=== PATIENT | female | born 1970 | race Caucasian/White ===

== ENCOUNTER 2024-04-23 10:55 | Outpatient (CLI) | payer BC | END 2024-04-23 23:59 | disposition home or self-care (01) | LOC: RAD 10:55 | PROVIDERS: ATTEND Registered Nurse | DX: M79.661 Pain in right lower leg (principal); M79.601 Pain in right arm | CPT/HCPCS: 93971 ==

== ENCOUNTER 2024-08-09 16:02 | Outpatient (CLI) | payer BC ==
[2024-08-09 16:34] LABS: ABSOLUTE RETICS # 53800 /CUMM (23000-93000); BASOPHILS # (AUTO) 0.1 X10'3 (0-0.2); BASOPHILS % (AUTO) 0.9 % (0-1); EOSINOPHILS # (AUTO) 0.2 X10'3 (0-0.9); EOSINOPHILS % (AUTO) 3.5 % (0-6); HEMATOCRIT 44.3 % (35.0-45.0); HEMOGLOBIN 14.7 g/dl (12.0-16.0); MEAN CORPUSCULAR HEMOGLOBIN 29.5 PG (27.0-31.0); MEAN CORPUSCULAR HGB CONC 33.2 g/dL (33.0-36.5); MEAN CORPUSCULAR VOLUME 88.8 FL (78-98); MEAN PLATELET VOLUME 7.7 FL (7.4-10.4); MONOCYTES # (AUTO) 0.5 X10'3 (0-0.9); MONOCYTES % (AUTO) 7.1 % (2-12); NEUTROPHILS # (AUTO) 4.1 X10'3 (1.8-7.7); NEUTROPHILS % (AUTO) 59.5 % (42-75); PLATELET COUNT 223 X10'3 (140-440); RED BLOOD COUNT 4.99 X10'6 (4.20-5.60); RED CELL DISTRIBUTION WIDTH 13.9 % (11.5-14.5); RETICULOCYTE % (AUTO) 1.1 % (0.5-1.5); WHITE BLOOD COUNT 6.9 X10'3 (4.5-11.0)
[2024-08-09 16:36] LABS: BILIRUBIN,URINE NEGATIVE (Neg); CLARITY,URINE CLEAR (Clear); COLOR,URINE YELLOW (Yellow); GLUCOSE, URINE NEGATIVE (Neg); KETONES,URINE NEGATIVE (Neg); LEUKOCYTE ESTERASE ,URINE NEGATIVE (Neg); NITRITES, URINE NEGATIVE (Neg); OCCULT BLOOD,URINE LARGE (Neg); PROTEIN,URINE NEGATIVE (Neg); UROBILINOGEN,URINE 0.2 E.U/dL (0.2-1.0)
[2024-08-09 16:43] LABS: UA COLLECTION TYPE CLN CATCH MIDSTREAM
[2024-08-09 16:44] LABS: MUCUS STRANDS FEW /LPF (Neg); SQUAMOUS EPITHELIAL CELL,UR MANY /LPF (FEW)
[2024-08-09 16:45] LABS: BACTERIA,URINE FEW /HPF (Neg); WBC,URINE 0-4 /HPF (0-4)
[2024-08-09 16:49] LABS: ANION GAP 6 (8-16); CHLORIDE 104 MMOL/L (99-107); POTASSIUM 3.7 MMOL/L (3.5-5.1); SODIUM 138 MMOL/L (135-145); TOTAL CARBON DIOXIDE 28.3 MMOL/L (24-32)
[2024-08-09 17:01] LABS: % IRON SATURATION 15 % (11-46); IRON 44 UG/DL (49-151); TOTAL IRON BINDING CAPACITY 303 UG/DL (259-388)
[2024-08-09 17:17] LABS: ALANINE AMINOTRANSFERASE 50 U/L (12-78); ALBUMIN 3.8 G/DL (3.4-5.0); ALBUMIN/GLOBULIN RATIO 0.9 (1.1-1.5); ALKALINE PHOSPHATASE 69 IU/L (46-116); ASPARTATE AMINO TRANSFERASE 27 U/L (10-37); BILIRUBIN,TOTAL 0.3 MG/DL (0.1-1.0); BLOOD UREA NITROGEN 14 MG/DL (7-18); BUN/CREATININE RATIO 18.2 (10.0-20.0); C-REACTIVE PROTEIN 1.57 MG/DL (0.0-0.5); CALCIUM 9.1 MG/DL (8.5-10.1); CREATININE 0.77 MG/DL (0.40-0.90); FERRITIN 101 NG/ML (8-252); FREE T4 (FREE THYROXINE) 0.92 NG/DL (0.73-1.40); GLUCOSE 92 MG/DL (70-104); LACTATE DEHYDROGENASE 166 U/L (81-234); PRO BRAIN NATRIURETIC PEPTIDE < 30 PG/ML (0-125); THYROID STIMULATING HORMONE 2.36 ulU/ml (0.34-4.50); TOTAL PROTEIN 7.9 G/DL (6.4-8.2); eGFR 78 ML/MIN
[2024-08-11 09:14] LABS: HAPTOGLOBIN 163 mg/dL (33-346); TRANSFERRIN 248 mg/dL (192-364)
[2024-08-11 11:16] LABS: ANTINUCLEAR ANTIBODIES Positive (Negative)
[2024-08-12 07:18] LABS: A/G RATIO 1.1 (0.7-1.7); ALBUMIN 3.8 g/dL (2.9-4.4); ALPHA-1-GLOBULIN 0.2 g/dL (0.0-0.4); ALPHA-2-GLOBULIN 0.8 g/dL (0.4-1.0); BETA GLOBULIN 1.2 g/dL (0.7-1.3); GAMMA GLOBULIN 1.3 g/dL (0.4-1.8); GLOBULIN, TOTAL 3.5 g/dL (2.2-3.9); M-SPIKE Not Observed g/dL (Not Observed); PROTEIN, TOTAL, SERUM 7.3 g/dL (6.0-8.5)
[2024-08-13 09:14] LABS: ALBUMIN, UR 23.1 % (.); ALPHA-1-GLOBULIN,UR 4.3 % (.); ALPHA-2-GLOBULIN,UR 8.5 % (.); BETA GLOBULIN, UR 41.1 % (.)
== END 2024-08-09 23:59 | disposition home or self-care (01) ==
LOC: RAD 16:02
PROVIDERS: ATTEND Internal Medicine Hematology & Oncology
DX: C50.919 Malignant neoplasm of unspecified site of unspecified female breast (principal)
CPT/HCPCS: 36415; 80053; 81001; 82607; 82728; 83010; 83540; 83550; 83615; 83880; 84155; 84156; 84165; 84166; 84439; 84443; 84466; 84550; 85025; 85045; 85651; 86038; 86140

== ENCOUNTER 2024-08-13 15:59 | Outpatient (CLI) | payer BC | END 2024-08-13 23:59 | disposition home or self-care (01) | LOC: RAD 15:59 | PROVIDERS: ATTEND Internal Medicine Hematology & Oncology | DX: Z01.818 Encounter for other preprocedural examination (principal); R59.0 Localized enlarged lymph nodes; K76.0 Fatty (change of) liver, not elsewhere classified; N63.20 Unspecified lump in the left breast, unspecified quadrant | CPT/HCPCS: 71250 ==

== ENCOUNTER 2024-08-24 08:25 | Outpatient (CLI) | payer BC | END 2024-08-24 23:59 | disposition home or self-care (01) | LOC: CARD DIAG 08:25 | PROVIDERS: ATTEND Nurse Practitioner Family | DX: Z01.810 Encounter for preprocedural cardiovascular examination (principal); I08.8 Other rheumatic multiple valve diseases | CPT/HCPCS: 93306 ==

== ENCOUNTER 2024-09-27 07:40 | Outpatient (CLI) | payer BC ==
[2024-09-27 08:11] LABS: BASOPHILS # (AUTO) 0.1 X10'3 (0-0.2); BASOPHILS % (AUTO) 1.1 % (0-1); EOSINOPHILS # (AUTO) 0.1 X10'3 (0-0.9); EOSINOPHILS % (AUTO) 1.4 % (0-6); HEMATOCRIT 42.1 % (35.0-45.0); HEMOGLOBIN 14.2 g/dl (12.0-16.0); LYMPHOCYTES # (AUTO) 1.4 X10'3 (1.1-4.8); LYMPHOCYTES % (AUTO) 21.3 % (21-51); MEAN CORPUSCULAR HEMOGLOBIN 29.8 PG (27.0-31.0); MEAN CORPUSCULAR HGB CONC 33.7 g/dL (33.0-36.5); MEAN CORPUSCULAR VOLUME 88.5 FL (78-98); MEAN PLATELET VOLUME 7.5 FL (7.4-10.4); MONOCYTES # (AUTO) 0.5 X10'3 (0-0.9); NEUTROPHILS # (AUTO) 4.3 X10'3 (1.8-7.7); NEUTROPHILS % (AUTO) 68.2 % (42-75); PLATELET COUNT 177 X10'3 (140-440); RED BLOOD COUNT 4.76 X10'6 (4.20-5.60); RED CELL DISTRIBUTION WIDTH 13.9 % (11.5-14.5); WHITE BLOOD COUNT 6.3 X10'3 (4.5-11.0)
[2024-09-27 08:29] LABS: BLOOD UREA NITROGEN 12 MG/DL (7-18); BUN/CREATININE RATIO 13.3 (10.0-20.0); CHLORIDE 108 MMOL/L (99-107); GLUCOSE 114 MG/DL (70-104); POTASSIUM 3.8 MMOL/L (3.5-5.1); SODIUM 142 MMOL/L (135-145); eGFR 65 ML/MIN
[2024-09-27 08:41] LABS: THYROID STIMULATING HORMONE 1.66 ulU/ml (0.34-4.50)
[2024-09-27 08:50] LABS: ALANINE AMINOTRANSFERASE 52 U/L (12-78); ALBUMIN 3.4 G/DL (3.4-5.0); ALBUMIN/GLOBULIN RATIO 0.9 (1.1-1.5); ALKALINE PHOSPHATASE 74 IU/L (46-116); ANION GAP 7 (8-16); ASPARTATE AMINO TRANSFERASE 32 U/L (10-37); BILIRUBIN,TOTAL 0.5 MG/DL (0.1-1.0); CALCIUM 8.8 MG/DL (8.5-10.1); TOTAL CARBON DIOXIDE 27.3 MMOL/L (24-32); TOTAL PROTEIN 7.2 G/DL (6.4-8.2)
== END 2024-09-27 23:56 | disposition home or self-care (01) ==
LOC: LAB 07:40
PROVIDERS: ATTEND Internal Medicine Hematology & Oncology
DX: C50.912 Malignant neoplasm of unspecified site of left female breast (principal); R79.89 Other specified abnormal findings of blood chemistry; E61.1 Iron deficiency; Z79.899 Other long term (current) drug therapy; Z17.0 Estrogen receptor positive status [ER+]
CPT/HCPCS: 36415; 80053; 83735; 84443; 85025

== ENCOUNTER 2024-10-20 08:09 | Outpatient (CLI) | payer BC ==
[2024-10-20 08:33] LABS: BASOPHILS # (AUTO) 0.1 X10'3 (0-0.2); EOSINOPHILS # (AUTO) 0.1 X10'3 (0-0.9); EOSINOPHILS % (AUTO) 1.3 % (0-6); HEMATOCRIT 42.2 % (35.0-45.0); HEMOGLOBIN 14.1 g/dl (12.0-16.0); LYMPHOCYTES # (AUTO) 1.8 X10'3 (1.1-4.8); MEAN CORPUSCULAR HEMOGLOBIN 29.6 PG (27.0-31.0); MEAN CORPUSCULAR HGB CONC 33.4 g/dL (33.0-36.5); MEAN CORPUSCULAR VOLUME 88.7 FL (78-98); MEAN PLATELET VOLUME 7.2 FL (7.4-10.4); MONOCYTES # (AUTO) 0.6 X10'3 (0-0.9); MONOCYTES % (AUTO) 11.5 % (2-12); NEUTROPHILS # (AUTO) 3.1 X10'3 (1.8-7.7); NEUTROPHILS % (AUTO) 54.2 % (42-75); PLATELET COUNT 241 X10'3 (140-440); RED BLOOD COUNT 4.76 X10'6 (4.20-5.60); RED CELL DISTRIBUTION WIDTH 15.4 % (11.5-14.5); WHITE BLOOD COUNT 5.6 X10'3 (4.5-11.0)
[2024-10-20 08:53] LABS: ALANINE AMINOTRANSFERASE 42 U/L (12-78); ALBUMIN 3.5 G/DL (3.4-5.0); ALBUMIN/GLOBULIN RATIO 0.9 (1.1-1.5); ALKALINE PHOSPHATASE 79 IU/L (46-116); ANION GAP 8 (8-16); ASPARTATE AMINO TRANSFERASE 32 U/L (10-37); BILIRUBIN,TOTAL 0.6 MG/DL (0.1-1.0); BLOOD UREA NITROGEN 12 MG/DL (7-18); BUN/CREATININE RATIO 13.5 (10.0-20.0); CALCIUM 8.7 MG/DL (8.5-10.1); CHLORIDE 106 MMOL/L (99-107); CREATININE 0.89 MG/DL (0.40-0.90); GLUCOSE 125 MG/DL (70-104); POTASSIUM 4.1 MMOL/L (3.5-5.1); SODIUM 141 MMOL/L (135-145); THYROID STIMULATING HORMONE 2.15 ulU/ml (0.34-4.50); TOTAL CARBON DIOXIDE 26.9 MMOL/L (24-32); TOTAL PROTEIN 7.3 G/DL (6.4-8.2); eGFR 66 ML/MIN
== END 2024-10-20 23:59 | disposition home or self-care (01) ==
LOC: RAD 08:09
PROVIDERS: ATTEND Internal Medicine Hematology & Oncology
DX: C50.912 Malignant neoplasm of unspecified site of left female breast (principal); E61.1 Iron deficiency; R79.89 Other specified abnormal findings of blood chemistry; Z79.899 Other long term (current) drug therapy; Z17.0 Estrogen receptor positive status [ER+]
CPT/HCPCS: 36415; 80053; 83735; 84443; 85025

== ENCOUNTER 2024-11-17 15:45 | Outpatient (CLI) | payer BC ==
[2024-11-10 08:14] LABS: BASOPHILS % (AUTO) 0.7 % (0-1); EOSINOPHILS % (AUTO) 0.5 % (0-6); HEMATOCRIT 41.4 % (35.0-45.0); LYMPHOCYTES # (AUTO) 1.7 X10'3 (1.1-4.8); LYMPHOCYTES % (AUTO) 33.1 % (21-51); MEAN CORPUSCULAR HEMOGLOBIN 30.5 PG (27.0-31.0); MEAN CORPUSCULAR HGB CONC 33.7 g/dL (33.0-36.5); MEAN CORPUSCULAR VOLUME 90.3 FL (78-98); MEAN PLATELET VOLUME 7.1 FL (7.4-10.4); MONOCYTES # (AUTO) 0.5 X10'3 (0-0.9); MONOCYTES % (AUTO) 10.4 % (2-12); NEUTROPHILS # (AUTO) 2.9 X10'3 (1.8-7.7); NEUTROPHILS % (AUTO) 55.3 % (42-75); PLATELET COUNT 248 X10'3 (140-440); RED BLOOD COUNT 4.59 X10'6 (4.20-5.60); RED CELL DISTRIBUTION WIDTH 16.4 % (11.5-14.5); WHITE BLOOD COUNT 5.2 X10'3 (4.5-11.0)
[2024-11-10 09:28] LABS: ALANINE AMINOTRANSFERASE 43 U/L (12-78); ALBUMIN 3.5 G/DL (3.4-5.0); ALBUMIN/GLOBULIN RATIO 0.9 (1.1-1.5); ALKALINE PHOSPHATASE 69 IU/L (46-116); ANION GAP 10 (8-16); ASPARTATE AMINO TRANSFERASE 31 U/L (10-37); BILIRUBIN,TOTAL 0.5 MG/DL (0.1-1.0); BLOOD UREA NITROGEN 14 MG/DL (7-18); BUN/CREATININE RATIO 16.9 (10.0-20.0); CALCIUM 9.4 MG/DL (8.5-10.1); CHLORIDE 104 MMOL/L (99-107); CREATININE 0.83 MG/DL (0.40-0.90); FREE T4 (FREE THYROXINE) 0.84 NG/DL (0.73-1.40); GLUCOSE 106 MG/DL (70-104); MAGNESIUM 2.1 MG/DL (1.5-2.4); POTASSIUM 3.7 MMOL/L (3.5-5.1); SODIUM 140 MMOL/L (135-145); THYROID STIMULATING HORMONE 2.01 ulU/ml (0.34-4.50); TOTAL CARBON DIOXIDE 26.1 MMOL/L (24-32); TOTAL PROTEIN 7.5 G/DL (6.4-8.2); eGFR 71 ML/MIN
[2024-11-11 13:15] LABS: VITAMIN D, 25-HYDROXY 28.5 ng/mL (30.0-100.0)
== END 2024-11-17 23:59 | disposition home or self-care (01) ==
LOC: CARD DIAG 15:45
PROVIDERS: ATTEND Internal Medicine Interventional Cardiology
DX: Z01.810 Encounter for preprocedural cardiovascular examination (principal); C50.112 Malignant neoplasm of central portion of left female breast; E55.9 Vitamin D deficiency, unspecified; I34.9 Nonrheumatic mitral valve disorder, unspecified
CPT/HCPCS: 36415; 80053; 82306; 83735; 84439; 84443; 85025; 93306; 93356

== ENCOUNTER 2024-12-01 08:10 | Outpatient (CLI) | payer BC ==
[2024-12-01 08:39] LABS: BASOPHILS # (AUTO) 0.1 X10'3 (0-0.2); BASOPHILS % (AUTO) 0.9 % (0-1); EOSINOPHILS % (AUTO) 0.3 % (0-6); HEMATOCRIT 41.8 % (35.0-45.0); HEMOGLOBIN 13.7 g/dl (12.0-16.0); LYMPHOCYTES # (AUTO) 1.7 X10'3 (1.1-4.8); LYMPHOCYTES % (AUTO) 30.2 % (21-51); MEAN CORPUSCULAR HEMOGLOBIN 29.8 PG (27.0-31.0); MEAN CORPUSCULAR HGB CONC 32.8 g/dL (33.0-36.5); MEAN CORPUSCULAR VOLUME 90.7 FL (78-98); MEAN PLATELET VOLUME 7.1 FL (7.4-10.4); MONOCYTES # (AUTO) 0.5 X10'3 (0-0.9); MONOCYTES % (AUTO) 8.6 % (2-12); NEUTROPHILS # (AUTO) 3.3 X10'3 (1.8-7.7); PLATELET COUNT 244 X10'3 (140-440); RED CELL DISTRIBUTION WIDTH 17.2 % (11.5-14.5); WHITE BLOOD COUNT 5.6 X10'3 (4.5-11.0)
[2024-12-01 09:11] LABS: ALANINE AMINOTRANSFERASE 37 U/L (12-78); ALBUMIN 3.4 G/DL (3.4-5.0); ALBUMIN/GLOBULIN RATIO 0.9 (1.1-1.5); ALKALINE PHOSPHATASE 73 IU/L (46-116); ANION GAP 9 (8-16); ASPARTATE AMINO TRANSFERASE 28 U/L (10-37); BILIRUBIN,TOTAL 0.6 MG/DL (0.1-1.0); BLOOD UREA NITROGEN 18 MG/DL (7-18); BUN/CREATININE RATIO 24.7 (10.0-20.0); CALCIUM 8.7 MG/DL (8.5-10.1); CHLORIDE 105 MMOL/L (99-107); CREATININE 0.73 MG/DL (0.40-0.90); GLUCOSE 119 MG/DL (70-104); MAGNESIUM 1.9 MG/DL (1.5-2.4); POTASSIUM 3.9 MMOL/L (3.5-5.1); SODIUM 141 MMOL/L (135-145); THYROID STIMULATING HORMONE 1.69 ulU/ml (0.34-4.50); TOTAL CARBON DIOXIDE 26.9 MMOL/L (24-32); eGFR 83 ML/MIN
== END 2024-12-01 23:59 | disposition home or self-care (01) ==
LOC: RAD 08:10
PROVIDERS: ATTEND Internal Medicine Hematology & Oncology
DX: C50.912 Malignant neoplasm of unspecified site of left female breast (principal); E61.1 Iron deficiency; R79.89 Other specified abnormal findings of blood chemistry; Z17.0 Estrogen receptor positive status [ER+]; Z79.899 Other long term (current) drug therapy
CPT/HCPCS: 36415; 80053; 83735; 84443; 85025

== ENCOUNTER 2024-12-07 22:28 | Emergency (ER) | payer BC ==
[~2024-12-07] VITALS: Ht 162.6 cm; Wt 110.0 kg
[2024-12-07 22:38] VITALS: TEMP 99.2
[2024-12-07 22:54] VITALS: PULSE 97; RESP 16; O2SAT 96
[2024-12-07] MEDS: ipratropium/albuterol 3ml nebule NEB STA (22:54)
[2024-12-07 23:02] VITALS: PULSE 105; RESP 24; O2SAT 97
[2024-12-08] MEDS: predniSONE 20 mg tablet PO ONE (00:02)
[2024-12-08] MEDS: triamcinolone acetonide 40mg/ml inj IM ONE (00:03)
[2024-12-08 01:16] VITALS: BP 108/55; PULSE 97; RESP 20; O2SAT 94
[2024-12-09] MEDS ORDERED: PROM118S5 PO (17:27)
[2024-12-09] MEDS ORDERED: GABA-530 PO (17:27)
[2024-12-09] MEDS ORDERED: LIDO30CR TOP (17:27)
[2024-12-09] MEDS ORDERED: ONDA-104 PO (17:27)
[2024-12-09] MEDS ORDERED: DICY20TA17 PO (17:27)
[2024-12-09] MEDS ORDERED: ALBU18HF2 INH (17:27)
[2024-12-09] MEDS ORDERED: IPRA3AMP31 NEB (17:27)
[2024-12-09] MEDS ORDERED: PROC10TA97 PO (17:27)
== END 2024-12-08 01:18 | disposition home or self-care (01) ==
LOC: ER 22:28
DX: J45.909 Unspecified asthma, uncomplicated (principal); Z91.013 Allergy to seafood
CPT/HCPCS: 93005; 94640; 96372; 99284; J3301; J7512; 94760

== ENCOUNTER 2024-12-09 13:27 | Inpatient (IN) | payer BC ==
[~2024-12-09] VITALS: Ht 162.6 cm; Wt 108.9 kg
[2024-12-09 14:23] LABS: LYMPHOCYTES # (AUTO) 0.6 X10'3 (1.1-4.8); RED BLOOD COUNT 4.35 X10'6 (4.20-5.60)
[2024-12-09 14:25] LABS: BASOPHILS % (AUTO) 1.2 % (0-1); EOSINOPHILS % (AUTO) 0.4 % (0-6); HEMOGLOBIN 13.3 g/dl (12.0-16.0); LYMPHOCYTES % (AUTO) 63.1 % (21-51); MEAN CORPUSCULAR HEMOGLOBIN 30.7 PG (27.0-31.0); MEAN CORPUSCULAR HGB CONC 34.2 g/dL (33.0-36.5); MEAN CORPUSCULAR VOLUME 89.7 FL (78-98); MEAN PLATELET VOLUME 7.6 FL (7.4-10.4); MONOCYTES # (AUTO) 0.2 X10'3 (0-0.9); MONOCYTES % (AUTO) 20.4 % (2-12); NEUTROPHILS # (AUTO) 0.1 X10'3 (1.8-7.7); NEUTROPHILS % (AUTO) 14.9 % (42-75); PLATELET COUNT 141 X10'3 (140-440); RED CELL DISTRIBUTION WIDTH 17.2 % (11.5-14.5)
[2024-12-09 14:28] LABS: ALBUMIN 3.6 G/DL (3.4-5.0); ANION GAP 7 (8-16); BLOOD UREA NITROGEN 14 MG/DL (7-18); BUN/CREATININE RATIO 14.7 (10.0-20.0); CALCIUM 8.7 MG/DL (8.5-10.1); CHLORIDE 98 MMOL/L (99-107); CREATININE 0.95 MG/DL (0.40-0.90); GLUCOSE 108 MG/DL (70-104); POTASSIUM 3.6 MMOL/L (3.5-5.1); PRO BRAIN NATRIURETIC PEPTIDE < 30 PG/ML (0-125); SODIUM 134 MMOL/L (135-145); eCRCL 58 ML/MIN; eGFR 61 ML/MIN
[2024-12-09] MEDS: normal saline 1000ml 1,000 ML IV ONE (14:40)
[2024-12-09 14:49] VITALS: PULSE 94; RESP 20; O2SAT 93; O2SAT 94
[2024-12-09] MEDS: ipratropium/albuterol 3ml nebule NEB ONE (14:49)
[2024-12-09 15:11] LABS: ANISOCYTOSIS 1+; LARGE PLATELETS FEW; NUCLEATED RED BLOOD CELLS 3 /100WBC (0-0); PLATELET ESTIMATE NORMAL; TOTAL CELLS COUNTED 100
[2024-12-09 15:12] LABS: TEAR DROP CELLS FEW
[2024-12-09] MEDS: ondansetron/PF 4mg/2ml inj IV ONE (15:36)
[2024-12-09] MEDS: dexamethasone sod phosphate 10mg/ml inj IV ONE (15:37)
[2024-12-09] MEDS: CefTRIAXone 2gm/D5W 50ml BAG 50 ML IV ONE (15:42)
[2024-12-09] MEDS ORDERED: iohexol 300mg/ml 100ml inj. ONE (16:29)
[2024-12-09] MEDS ORDERED: HYDROcodone/acetaminophen 5mg/325mg tablet PO PRN (16:40)
[2024-12-09] MEDS ORDERED: potassium Cl 20 mEq SR tablet PO PRN (16:40)
[2024-12-09] MEDS ORDERED: magnesium sulf-water 4G/100mL 100 ML IV PRN (16:40)
[2024-12-09] MEDS ORDERED: magnesium sulf-water 2g/50mL 50 ML IV PRN (16:40)
[2024-12-09] MEDS ORDERED: magnesium Cl slow-release 64mg tablet PO PRN (16:40)
[2024-12-09] MEDS ORDERED: potassium Cl 40MEQ/1/2NS 520ml 520 ML IV PRN (16:40)
[2024-12-09] MEDS ORDERED: acetaminophen 325mg tablet PO PRN ×2 (16:40)
[2024-12-09] MEDS ORDERED: morphine 2 MG/ML inj. syringe IV PRN (16:40)
[2024-12-09] MEDS ORDERED: PROC10TA97 PO (17:27)
[2024-12-09] MEDS ORDERED: ALBU18HF2 INH (17:27)
[2024-12-09] MEDS ORDERED: DICY20TA17 PO (17:27)
[2024-12-09] MEDS ORDERED: ONDA-104 PO (17:27)
[2024-12-09] MEDS ORDERED: PROM118S5 PO (17:27)
[2024-12-09] MEDS ORDERED: IPRA3AMP31 NEB (17:27)
[2024-12-09] MEDS ORDERED: GABA-530 PO (17:27)
[2024-12-09] MEDS ORDERED: LIDO30CR TOP (17:27)
[2024-12-09 18:10] VITALS: BP 128/64; PULSE 92; RESP 16; TEMP 97.1
[2024-12-09] MEDS: azithromycin/NS 500mg/250ml 250 ML IV ONE (19:02)
[2024-12-09] MEDS: heparin, porcine 5000 units/ml vial SQ SCH (19:49)
[2024-12-09] MEDS: cefepime 1GM in D5W 50mL 50 ML IV SCH (20:00)
[2024-12-09 22:00] VITALS: BP 125/75; PULSE 89; RESP 18; TEMP 98.8; O2SAT 95
[2024-12-09 23:12] VITALS: PULSE 86; RESP 18; O2SAT 96
[2024-12-09] MEDS: ipratropium/albuterol 3ml nebule NEB PRN (23:12)
[2024-12-09 23:35] VITALS: PULSE 106; RESP 18
[2024-12-10] VITALS (8 sets, daily range): BP systolic 113–158; BP diastolic 57–70; PULSE 78–107; RESP 13–20; TEMP 97.7–98.2; O2SAT 93–96
[2024-12-10 06:04] LABS: BASOPHILS % (AUTO) 0.5 % (0-1); EOSINOPHILS % (AUTO) 0.1 % (0-6); HEMATOCRIT 34.8 % (35.0-45.0); HEMOGLOBIN 11.6 g/dl (12.0-16.0); LYMPHOCYTES # (AUTO) 0.5 X10'3 (1.1-4.8); LYMPHOCYTES % (AUTO) 53.1 % (21-51); MEAN CORPUSCULAR HEMOGLOBIN 29.9 PG (27.0-31.0); MEAN CORPUSCULAR HGB CONC 33.4 g/dL (33.0-36.5); MEAN CORPUSCULAR VOLUME 89.5 FL (78-98); MEAN PLATELET VOLUME 7.4 FL (7.4-10.4); MONOCYTES # (AUTO) 0.3 X10'3 (0-0.9); MONOCYTES % (AUTO) 28.9 % (2-12); NEUTROPHILS # (AUTO) 0.2 X10'3 (1.8-7.7); NEUTROPHILS % (AUTO) 17.4 % (42-75); PLATELET COUNT 139 X10'3 (140-440); RED BLOOD COUNT 3.89 X10'6 (4.20-5.60); RED CELL DISTRIBUTION WIDTH 17.1 % (11.5-14.5)
[2024-12-10 06:13] LABS: WHITE BLOOD COUNT 0.9 X10'3 (4.5-11.0)
[2024-12-10 06:30] LABS: ALANINE AMINOTRANSFERASE 40 U/L (12-78); ALBUMIN 3.1 G/DL (3.4-5.0); ALBUMIN/GLOBULIN RATIO 0.8 (1.1-1.5); ALKALINE PHOSPHATASE 48 IU/L (46-116); ANION GAP 7 (8-16); ASPARTATE AMINO TRANSFERASE 25 U/L (10-37); BILIRUBIN,TOTAL 0.7 MG/DL (0.1-1.0); BLOOD UREA NITROGEN 12 MG/DL (7-18); CALCIUM 8.7 MG/DL (8.5-10.1); CHLORIDE 101 MMOL/L (99-107); GLUCOSE 147 MG/DL (70-104); POTASSIUM 3.7 MMOL/L (3.5-5.1); SODIUM 137 MMOL/L (135-145); TOTAL CARBON DIOXIDE 29.4 MMOL/L (24-32); eCRCL 69 ML/MIN; eGFR 74 ML/MIN
[2024-12-10] MEDS ORDERED: CefTRIAXone 2gm/D5W 50ml BAG 50 ML IV SCH (08:00)
[2024-12-10] MEDS ORDERED: azithromycin/NS 500mg/250ml 250 ML IV SCH (08:00)
[2024-12-10] MEDS ORDERED: albuterol 2.5 MG/3 ML nebule NEB PRN (08:30)
[2024-12-10] MEDS ORDERED: non-formulary drug (Ondansetron HCl 1 TAB) PO PRN (08:30)
[2024-12-10] MEDS: gabapentin 100mg capsule PO ONE (09:36)
[2024-12-10] MEDS: TBO-filgrastim 300 MCG/0.5 ML inj. SQ ONE (12:37)
[2024-12-10] MEDS: lactose-reduced food (Ensure Enlive) - 237ml bottle PO SCH (13:00)
[2024-12-10] MEDS: gabapentin 100mg capsule PO SCH (14:44)
[2024-12-10] MEDS: ipratropium/albuterol 3ml nebule NEB PRN (19:21)
[2024-12-11] VITALS (8 sets, daily range): BP systolic 98–130; BP diastolic 55–65; PULSE 69–96; RESP 16–20; TEMP 97.7–98.8; O2SAT 93–100
[2024-12-11 05:56] LABS: EOSINOPHILS % (AUTO) 0.2 % (0-6); HEMATOCRIT 35.2 % (35.0-45.0); HEMOGLOBIN 11.9 g/dl (12.0-16.0); MONOCYTES # (AUTO) 1.2 X10'3 (0-0.9); NEUTROPHILS # (AUTO) 1.4 X10'3 (1.8-7.7); PLATELET COUNT 163 X10'3 (140-440); WHITE BLOOD COUNT 4.1 X10'3 (4.5-11.0)
[2024-12-11 05:59] LABS: BASOPHILS % (AUTO) 0.3 % (0-1); LYMPHOCYTES # (AUTO) 1.6 X10'3 (1.1-4.8); LYMPHOCYTES % (AUTO) 38.2 % (21-51); MEAN CORPUSCULAR HEMOGLOBIN 30.4 PG (27.0-31.0); MEAN CORPUSCULAR HGB CONC 33.7 g/dL (33.0-36.5); MEAN CORPUSCULAR VOLUME 90.2 FL (78-98); MEAN PLATELET VOLUME 7.8 FL (7.4-10.4); MONOCYTES % (AUTO) 28.2 % (2-12); NEUTROPHILS % (AUTO) 33.1 % (42-75); RED CELL DISTRIBUTION WIDTH 17.4 % (11.5-14.5)
[2024-12-11 06:19] LABS: ALANINE AMINOTRANSFERASE 43 U/L (12-78); ALBUMIN 3.1 G/DL (3.4-5.0); ALBUMIN/GLOBULIN RATIO 0.9 (1.1-1.5); ALKALINE PHOSPHATASE 52 IU/L (46-116); ANION GAP 10 (8-16); ASPARTATE AMINO TRANSFERASE 37 U/L (10-37); BILIRUBIN,TOTAL 0.7 MG/DL (0.1-1.0); BLOOD UREA NITROGEN 19 MG/DL (7-18); BUN/CREATININE RATIO 23.5 (10.0-20.0); CHLORIDE 102 MMOL/L (99-107); CREATININE 0.81 MG/DL (0.40-0.90); GLUCOSE 100 MG/DL (70-104); POTASSIUM 3.1 MMOL/L (3.5-5.1); SODIUM 139 MMOL/L (135-145); TOTAL CARBON DIOXIDE 26.8 MMOL/L (24-32); TOTAL PROTEIN 6.7 G/DL (6.4-8.2); eCRCL 68 ML/MIN; eGFR 73 ML/MIN
[2024-12-11 06:26] LABS: TOTAL CELLS COUNTED 100
[2024-12-11 06:27] LABS: ANISOCYTOSIS 1+; PLATELET ESTIMATE NORMAL
[2024-12-11] MEDS: azithromycin 250mg tablet PO SCH (08:29)
[2024-12-11] MEDS: potassium Cl 20 mEq SR tablet PO PRN (08:29)
[2024-12-11] MEDS: ondansetron/PF 4mg/2ml inj IV PRN (20:33)
[2024-12-12] MEDS: guaiFENesin 200 MG/10 ML oral syrup UD cup PO PRN (00:31)
[2024-12-12 06:00] VITALS: BP 119/61; PULSE 83; RESP 18; TEMP 98.4; O2SAT 94
[2024-12-12 06:13] LABS: EOSINOPHILS % (AUTO) 0.1 % (0-6); LYMPHOCYTES # (AUTO) 2.2 X10'3 (1.1-4.8); MONOCYTES # (AUTO) 1.3 X10'3 (0-0.9); MONOCYTES % (AUTO) 16.4 % (2-12); NEUTROPHILS # (AUTO) 4.4 X10'3 (1.8-7.7); WHITE BLOOD COUNT 7.9 X10'3 (4.5-11.0)
[2024-12-12 06:47] LABS: ALANINE AMINOTRANSFERASE 41 U/L (12-78); ALBUMIN/GLOBULIN RATIO 0.9 (1.1-1.5); ALKALINE PHOSPHATASE 70 IU/L (46-116); ANION GAP 7 (8-16); ASPARTATE AMINO TRANSFERASE 35 U/L (10-37); BILIRUBIN,TOTAL 0.6 MG/DL (0.1-1.0); BLOOD UREA NITROGEN 15 MG/DL (7-18); BUN/CREATININE RATIO 18.5 (10.0-20.0); CALCIUM 8.6 MG/DL (8.5-10.1); CHLORIDE 105 MMOL/L (99-107); CREATININE 0.81 MG/DL (0.40-0.90); GLUCOSE 90 MG/DL (70-104); POTASSIUM 3.4 MMOL/L (3.5-5.1); SODIUM 139 MMOL/L (135-145); TOTAL CARBON DIOXIDE 27.5 MMOL/L (24-32); TOTAL PROTEIN 6.4 G/DL (6.4-8.2); eCRCL 68 ML/MIN; eGFR 73 ML/MIN
[2024-12-12 06:57] LABS: BASOPHILS % (AUTO) 0.5 % (0-1); HEMATOCRIT 33.8 % (35.0-45.0); HEMOGLOBIN 11.3 g/dl (12.0-16.0); LYMPHOCYTES % (AUTO) 27.8 % (21-51); MEAN CORPUSCULAR HEMOGLOBIN 30.6 PG (27.0-31.0); MEAN CORPUSCULAR HGB CONC 33.5 g/dL (33.0-36.5); MEAN CORPUSCULAR VOLUME 91.5 FL (78-98); MEAN PLATELET VOLUME 7.9 FL (7.4-10.4); NEUTROPHILS % (AUTO) 55.2 % (42-75); PLATELET COUNT 166 X10'3 (140-440); RED CELL DISTRIBUTION WIDTH 17.7 % (11.5-14.5)
[2024-12-12 07:15] LABS: NUCLEATED RED BLOOD CELLS 2 /100WBC (0-0); TOTAL CELLS COUNTED 100
[2024-12-12 07:16] LABS: ANISOCYTOSIS 1+; PLATELET ESTIMATE NORMAL; POLYCHROMASIA FEW
[2024-12-12 10:00] VITALS: BP 117/68; PULSE 89; RESP 18; TEMP 98.1; O2SAT 95
[2024-12-12 10:06] VITALS: RESP 14; O2SAT 94
[2024-12-12 10:15] VITALS: BP 124/70; PULSE 86; RESP 14; TEMP 98.1; O2SAT 94
[2024-12-12] MEDS ORDERED: AZIT-164 PO (11:34)
[2024-12-12] MEDS ORDERED: CEFD300C3 PO (11:34)
== END 2024-12-12 15:14 | disposition home or self-care (01) | DRG 189 ==
LOC: ER 13:28 → ED HOLD 16:44 → EDBEDREQ 17:36 → ORTHO 4S 18:00
PROVIDERS: ADMIT Internal Medicine; ATTEND Internal Medicine
DX: J96.01 Acute respiratory failure with hypoxia (principal); J18.9 Pneumonia, unspecified organism; J45.901 Unspecified asthma with (acute) exacerbation; D84.9 Immunodeficiency, unspecified; Z68.41 Body mass index [BMI] 40.0-44.9, adult; Z20.822 Contact with and (suspected) exposure to COVID-19; D70.9 Neutropenia, unspecified; J06.9 Acute upper respiratory infection, unspecified; G62.9 Polyneuropathy, unspecified; E66.813 Obesity, class 3; Z79.899 Other long term (current) drug therapy; Z91.013 Allergy to seafood; Z91.018 Allergy to other foods
CPT/HCPCS: 36415; 71046; 71250; 80048; 80053; 83605; 83880; 84145; 85007; 85025; 85651; 87040; 87081; 87502; 87503; 87811; 93308; 94640; 94664; 94760; 96361; 96365; 96366; 96367; 96372; 96375; 97116; 97161; 97530; 99291; A4615; G0378; J0456; J0692; J0696; J1100; J1442; J1644; J2405; J7030; Q9967

== ENCOUNTER 2024-12-21 08:22 | Outpatient (CLI) | payer BC ==
[~2024-12-21 08:22] MED LIST: ALBU18HF2 INH; CEFD300C3 PO; DICY20TA17 PO; GABA-530 PO; IPRA3AMP31 NEB; LIDO30CR TOP; ONDA-104 PO; PROC10TA97 PO; PROM118S5 PO
[2024-12-21 08:58] LABS: BASOPHILS % (AUTO) 0.9 % (0-1); EOSINOPHILS % (AUTO) 0.2 % (0-6); HEMATOCRIT 39.2 % (35.0-45.0); HEMOGLOBIN 13.1 g/dl (12.0-16.0); LYMPHOCYTES # (AUTO) 1.6 X10'3 (1.1-4.8); MEAN CORPUSCULAR HEMOGLOBIN 30.9 PG (27.0-31.0); MEAN CORPUSCULAR HGB CONC 33.3 g/dL (33.0-36.5); MEAN CORPUSCULAR VOLUME 92.5 FL (78-98); MEAN PLATELET VOLUME 6.8 FL (7.4-10.4); MONOCYTES # (AUTO) 0.3 X10'3 (0-0.9); MONOCYTES % (AUTO) 7.5 % (2-12); NEUTROPHILS # (AUTO) 2.5 X10'3 (1.8-7.7); NEUTROPHILS % (AUTO) 55.4 % (42-75); PLATELET COUNT 251 X10'3 (140-440); RED BLOOD COUNT 4.24 X10'6 (4.20-5.60); RED CELL DISTRIBUTION WIDTH 18.1 % (11.5-14.5); WHITE BLOOD COUNT 4.5 X10'3 (4.5-11.0)
[2024-12-21 09:29] LABS: ALANINE AMINOTRANSFERASE 37 U/L (12-78); ALBUMIN 3.4 G/DL (3.4-5.0); ALBUMIN/GLOBULIN RATIO 0.8 (1.1-1.5); ANION GAP 8 (8-16); ASPARTATE AMINO TRANSFERASE 27 U/L (10-37); BILIRUBIN,TOTAL 0.6 MG/DL (0.1-1.0); BLOOD UREA NITROGEN 16 MG/DL (7-18); BUN/CREATININE RATIO 17.8 (10.0-20.0); CALCIUM 8.9 MG/DL (8.5-10.1); CHLORIDE 108 MMOL/L (99-107); GLUCOSE 102 MG/DL (70-104); MAGNESIUM 1.8 MG/DL (1.5-2.4); POTASSIUM 3.7 MMOL/L (3.5-5.1); SODIUM 143 MMOL/L (135-145); TOTAL CARBON DIOXIDE 26.8 MMOL/L (24-32); TOTAL PROTEIN 7.5 G/DL (6.4-8.2); eGFR 65 ML/MIN
[2024-12-21 09:30] LABS: ALKALINE PHOSPHATASE 69 IU/L (46-116); THYROID STIMULATING HORMONE 2.53 ulU/ml (0.34-4.50)
== END 2024-12-21 23:59 | disposition home or self-care (01) ==
LOC: LAB 08:22
PROVIDERS: ATTEND Registered Nurse
DX: C50.912 Malignant neoplasm of unspecified site of left female breast (principal); E61.1 Iron deficiency; R79.89 Other specified abnormal findings of blood chemistry; Z17.0 Estrogen receptor positive status [ER+]; Z79.899 Other long term (current) drug therapy
CPT/HCPCS: 36415; 80053; 83735; 84443; 85025

== ENCOUNTER 2025-01-12 08:36 | Outpatient (CLI) | payer BC ==
[2025-01-12 09:08] LABS: BASOPHILS % (AUTO) 0.6 % (0-1); EOSINOPHILS % (AUTO) 0.5 % (0-6); HEMATOCRIT 40.2 % (35.0-45.0); HEMOGLOBIN 13.2 g/dl (12.0-16.0); LYMPHOCYTES # (AUTO) 1.8 X10'3 (1.1-4.8); LYMPHOCYTES % (AUTO) 31.6 % (21-51); MEAN CORPUSCULAR HEMOGLOBIN 30.6 PG (27.0-31.0); MEAN CORPUSCULAR HGB CONC 32.9 g/dL (33.0-36.5); MEAN CORPUSCULAR VOLUME 92.9 FL (78-98); MEAN PLATELET VOLUME 6.9 FL (7.4-10.4); MONOCYTES # (AUTO) 0.6 X10'3 (0-0.9); MONOCYTES % (AUTO) 9.9 % (2-12); NEUTROPHILS # (AUTO) 3.2 X10'3 (1.8-7.7); NEUTROPHILS % (AUTO) 57.4 % (42-75); PLATELET COUNT 236 X10'3 (140-440); RED BLOOD COUNT 4.33 X10'6 (4.20-5.60); RED CELL DISTRIBUTION WIDTH 18.3 % (11.5-14.5); WHITE BLOOD COUNT 5.6 X10'3 (4.5-11.0)
[2025-01-12 09:46] LABS: ALANINE AMINOTRANSFERASE 37 U/L (12-78); ALBUMIN 3.5 G/DL (3.4-5.0); ALBUMIN/GLOBULIN RATIO 1.3 (1.1-1.5); ANION GAP 8 (8-16); ASPARTATE AMINO TRANSFERASE 22 U/L (10-37); BILIRUBIN,DIRECT 0.1 MG/DL (0-0.3); BLOOD UREA NITROGEN 13 MG/DL (7-18); BUN/CREATININE RATIO 16.3 (10.0-20.0); CALCIUM 8.6 MG/DL (8.5-10.1); CHLORIDE 107 MMOL/L (99-107); GLUCOSE 93 MG/DL (70-104); MAGNESIUM 1.8 MG/DL (1.5-2.4); SODIUM 143 MMOL/L (135-145); TOTAL CARBON DIOXIDE 28.2 MMOL/L (24-32); TOTAL PROTEIN 6.3 G/DL (6.4-8.2); eGFR 74 ML/MIN
[2025-01-12 10:12] LABS: ALKALINE PHOSPHATASE 72 IU/L (46-116); BILIRUBIN,TOTAL 0.5 MG/DL (0.1-1.0); CHOL/HDL RATIO 4.2 (0.00-4.99); CHOLESTEROL 207 MG/DL (0-200); FREE T4 (FREE THYROXINE) 0.98 NG/DL (0.73-1.40); HDL CHOLESTEROL 49 MG/DL (35-60); LDL CHOLESTEROL 130 MG/DL (50-100); THYROID STIMULATING HORMONE 1.64 ulU/ml (0.34-4.50); TRIGLYCERIDES 114 MG/DL (20-135)
== END 2025-01-12 23:59 | disposition home or self-care (01) ==
LOC: RAD 08:36
PROVIDERS: ATTEND Nurse Practitioner Family
DX: C50.112 Malignant neoplasm of central portion of left female breast (principal); Z68.41 Body mass index [BMI] 40.0-44.9, adult; R79.89 Other specified abnormal findings of blood chemistry; Z79.899 Other long term (current) drug therapy
CPT/HCPCS: 36415; 80053; 80061; 82248; 83735; 84439; 84443; 85025

== ENCOUNTER 2025-01-21 08:02 | Day surgery (SDC) | payer BC ==
[2025-01-17 15:49] LABS: BASOPHILS % (AUTO) 0.7 % (0-1); EOSINOPHILS # (AUTO) 0.1 X10'3 (0-0.9); EOSINOPHILS % (AUTO) 1.7 % (0-6); LYMPHOCYTES # (AUTO) 1.9 X10'3 (1.1-4.8); LYMPHOCYTES % (AUTO) 27.1 % (21-51); MEAN CORPUSCULAR HEMOGLOBIN 30.7 PG (27.0-31.0); MEAN CORPUSCULAR HGB CONC 33.4 g/dL (33.0-36.5); MEAN CORPUSCULAR VOLUME 92.1 FL (78-98); MEAN PLATELET VOLUME 6.8 FL (7.4-10.4); MONOCYTES # (AUTO) 0.7 X10'3 (0-0.9); MONOCYTES % (AUTO) 10.4 % (2-12); NEUTROPHILS # (AUTO) 4.1 X10'3 (1.8-7.7); NEUTROPHILS % (AUTO) 60.1 % (42-75); PRE OP HEMATOCRIT 40.6 % (35.0-45.0); PRE OP HEMOGLOBIN 13.5 g/dL (12.0-16.0); PRE OP PLATELET COUNT 236 X10'3 (140-440); PRE OP WHITE BLOOD COUNT 6.9 10'3 (4.8-10.8); RED BLOOD COUNT 4.41 X10'6 (4.20-5.60); RED CELL DISTRIBUTION WIDTH 17.7 % (11.5-14.5)
[2025-01-17 16:03] LABS: ALBUMIN 3.4 G/DL (3.4-5.0); ALKALINE PHOSPHATASE 84 IU/L (46-116); BLOOD UREA NITROGEN 15 MG/DL (7-18); BUN/CREATININE RATIO 19.7 (10.0-20.0); CALCIUM 8.8 MG/DL (8.5-10.1); CHLORIDE 107 MMOL/L (99-107); CREATININE 0.76 MG/DL (0.40-0.90); PRE OP ALT 37 U/L (30-65); PRE OP ANION GAP 5 (8-16); PRE OP AST 24 U/L (10-37); PRE OP BILIRUB, TOTAL 0.5 MG/DL (0.0-1.0); PRE OP GLUCOSE 103 MG/DL (70-104); PRE OP POTASSIUM 3.6 MMOL/L (3.4-5.1); PRE OP SODIUM 139 MMOL/L (135-145); TOTAL CARBON DIOXIDE 26.7 MMOL/L (24-32); TOTAL PROTEIN 6.9 G/DL (6.4-8.2); eGFR 79 ML/MIN
[~2025-01-21] VITALS: Ht 162.6 cm; Wt 110.0 kg
[2025-01-21] VITALS (21 sets, daily range): BP systolic 114–142; BP diastolic 75–90; PULSE 63–84; RESP 10–18; TEMP 97.1; O2SAT 93–98
[2025-01-21] MEDS: ceFAZolin 2gm in dextrose, iso 50 ML IV ONE (05:30)
[2025-01-21] MEDS: ringers solution, lacted 1,000 ML IV SCH (08:57)
[2025-01-21] MEDS: famotidine 20mg tablet PO ONE (08:58)
[2025-01-21] MEDS ORDERED: fentaNYL/PF 50MCG/1 ML 2ML syringe IV PRN (09:25)
[2025-01-21] MEDS ORDERED: ringers solution, lacted 1,000 ML IV SCH (09:25)
[2025-01-21] MEDS ORDERED: morphine 4 MG/ML inj SYRINge IV PRN (09:25)
[2025-01-21] MEDS ORDERED: hydrALAZINE 20mg/ml inj. IV PRN (09:25)
[2025-01-21] MEDS ORDERED: ondansetron/PF 4mg/2ml inj IV PRN (09:25)
[2025-01-21] MEDS ORDERED: labetalol 20mg/4ml (5mg/ml) syringe IV PRN (09:25)
[2025-01-21] MEDS ORDERED: LIDOcaine 1% 30ml preserv. free vial ONE (10:08)
[2025-01-21] MEDS ORDERED: BUPIVAcaine 2.5mg/ml inj 50ml vial (contains preservative) ONE (10:09)
[2025-01-21] MEDS ORDERED: sevoflurane 250ml liquid IH ONE (10:22)
[2025-01-21] MEDS ORDERED: fentaNYL/PF 50MCG/1 ML 2ML syringe ONE (10:28)
[2025-01-21] MEDS ORDERED: midazolam 1 mg/ML 2ml injection ONE ×2 (10:28)
[2025-01-21] MEDS ORDERED: succinylcholine 20mg/ml inj IV ONE (10:34)
[2025-01-21] MEDS ORDERED: ondansetron/PF 4mg/2ml inj ONE (10:36)
[2025-01-21] MEDS ORDERED: acetaminophen 1,000mg/100ml IV 100 ML IV ONE (10:45)
[2025-01-21] MEDS ORDERED: dexamethasone sod phosphate 4mg/ml inj. ONE (10:50)
[2025-01-21] MEDS ORDERED: LIDOcaine 2% (20mg/ml) 5ml vial ONE (10:50)
[2025-01-21] MEDS ORDERED: propofol inj 20 ML IV ONE (10:50)
[2025-01-21] MEDS: BUPIVAcaine/PF 2.5 mg/ml (0.25%) 30ml vial IJ ONE (10:58)
[2025-01-21] MEDS: morphine 2 MG/ML inj. syringe IV PRN (12:53)
[2025-01-21] MEDS: fentaNYL/PF 50MCG/1 ML 2ML syringe IV PRN (14:01)
[2025-01-21] MEDS: oxyCODONE/APAP 5-325mg tablet PO ONE (14:01)
== END 2025-01-21 14:47 | disposition home or self-care (01) ==
LOC: PAS 08:02
PROVIDERS: ATTEND Surgery
DX: C50.412 Malignant neoplasm of upper-outer quadrant of left female breast (principal); Z79.899 Other long term (current) drug therapy; G89.18 Other acute postprocedural pain; J45.909 Unspecified asthma, uncomplicated; Z87.891 Personal history of nicotine dependence; Z91.041 Radiographic dye allergy status; Z91.013 Allergy to seafood; Z91.018 Allergy to other foods
CPT/HCPCS: 19301; 36415; 38525; 38792; 64420; 64421; 80053; 82948; 85025; J0131; J0330; J0690; J1100; J2003; J2250; J2270; J2405; J2704; J3010; J3490; J7030; J7120; Z7506; Z7508; Z7512; A4215; A4618; A6258; A6449; A7000

== ENCOUNTER 2025-02-09 07:43 | Outpatient (CLI) | payer BC ==
[2025-02-09 08:07] LABS: BASOPHILS % (AUTO) 0.8 % (0-1); EOSINOPHILS # (AUTO) 0.4 X10'3 (0-0.9); EOSINOPHILS % (AUTO) 9.4 % (0-6); HEMATOCRIT 41.4 % (35.0-45.0); HEMOGLOBIN 13.6 g/dl (12.0-16.0); LYMPHOCYTES # (AUTO) 1.9 X10'3 (1.1-4.8); LYMPHOCYTES % (AUTO) 40.5 % (21-51); MEAN CORPUSCULAR HEMOGLOBIN 30.5 PG (27.0-31.0); MEAN CORPUSCULAR VOLUME 92.5 FL (78-98); MONOCYTES # (AUTO) 0.5 X10'3 (0-0.9); MONOCYTES % (AUTO) 10.1 % (2-12); NEUTROPHILS # (AUTO) 1.9 X10'3 (1.8-7.7); NEUTROPHILS % (AUTO) 39.2 % (42-75); PLATELET COUNT 230 X10'3 (140-440); RED BLOOD COUNT 4.47 X10'6 (4.20-5.60); RED CELL DISTRIBUTION WIDTH 16.2 % (11.5-14.5); WHITE BLOOD COUNT 4.7 X10'3 (4.5-11.0)
[2025-02-09 08:26] LABS: ALANINE AMINOTRANSFERASE 31 U/L (12-78); ALBUMIN 3.5 G/DL (3.4-5.0); ALBUMIN/GLOBULIN RATIO 1.1 (1.1-1.5); ALKALINE PHOSPHATASE 73 IU/L (46-116); ANION GAP 9 (8-16); ASPARTATE AMINO TRANSFERASE 25 U/L (10-37); BILIRUBIN,TOTAL 0.5 MG/DL (0.1-1.0); BLOOD UREA NITROGEN 16 MG/DL (7-18); BUN/CREATININE RATIO 18.2 (10.0-20.0); CALCIUM 8.8 MG/DL (8.5-10.1); CHLORIDE 108 MMOL/L (99-107); CREATININE 0.88 MG/DL (0.40-0.90); GLUCOSE 118 MG/DL (70-104); MAGNESIUM 1.8 MG/DL (1.5-2.4); POTASSIUM 3.8 MMOL/L (3.5-5.1); SODIUM 144 MMOL/L (135-145); THYROID STIMULATING HORMONE 1.65 ulU/ml (0.34-4.50); TOTAL CARBON DIOXIDE 27.1 MMOL/L (24-32); TOTAL PROTEIN 6.8 G/DL (6.4-8.2); eGFR 66 ML/MIN
[2025-02-09 09:48] LABS: FREE T4 (FREE THYROXINE) 0.85 NG/DL (0.73-1.40)
== END 2025-02-09 23:59 | disposition home or self-care (01) ==
LOC: LAB 07:43
PROVIDERS: ATTEND Internal Medicine Hematology & Oncology
DX: C50.912 Malignant neoplasm of unspecified site of left female breast (principal); Z17.0 Estrogen receptor positive status [ER+]; E61.1 Iron deficiency; Z79.899 Other long term (current) drug therapy; R79.89 Other specified abnormal findings of blood chemistry; Z78.0 Asymptomatic menopausal state
CPT/HCPCS: 36415; 80053; 83735; 84439; 84443; 85025

== ENCOUNTER 2025-03-02 07:14 | Outpatient (CLI) | payer BC ==
[2025-03-02 07:43] LABS: BASOPHILS % (AUTO) 0.7 % (0-1); EOSINOPHILS # (AUTO) 0.3 X10'3 (0-0.9); EOSINOPHILS % (AUTO) 6.9 % (0-6); HEMATOCRIT 41.3 % (35.0-45.0); HEMOGLOBIN 13.7 g/dl (12.0-16.0); LYMPHOCYTES # (AUTO) 1.6 X10'3 (1.1-4.8); LYMPHOCYTES % (AUTO) 33.2 % (21-51); MEAN CORPUSCULAR HEMOGLOBIN 30.4 PG (27.0-31.0); MEAN CORPUSCULAR HGB CONC 33.1 g/dL (33.0-36.5); MEAN CORPUSCULAR VOLUME 91.9 FL (78-98); MEAN PLATELET VOLUME 7.2 FL (7.4-10.4); MONOCYTES # (AUTO) 0.5 X10'3 (0-0.9); MONOCYTES % (AUTO) 9.9 % (2-12); NEUTROPHILS # (AUTO) 2.3 X10'3 (1.8-7.7); NEUTROPHILS % (AUTO) 49.3 % (42-75); PLATELET COUNT 207 X10'3 (140-440); RED BLOOD COUNT 4.49 X10'6 (4.20-5.60); RED CELL DISTRIBUTION WIDTH 15.1 % (11.5-14.5); WHITE BLOOD COUNT 4.7 X10'3 (4.5-11.0)
[2025-03-02 08:08] LABS: ALANINE AMINOTRANSFERASE 35 U/L (12-78); ALBUMIN 3.4 G/DL (3.4-5.0); ALBUMIN/GLOBULIN RATIO 0.9 (1.1-1.5); ALKALINE PHOSPHATASE 70 IU/L (46-116); ANION GAP 11 (8-16); ASPARTATE AMINO TRANSFERASE 23 U/L (10-37); BILIRUBIN,TOTAL 0.6 MG/DL (0.1-1.0); BLOOD UREA NITROGEN 18 MG/DL (7-18); BUN/CREATININE RATIO 19.4 (10.0-20.0); CALCIUM 8.6 MG/DL (8.5-10.1); CHLORIDE 106 MMOL/L (99-107); CREATININE 0.93 MG/DL (0.40-0.90); GLUCOSE 112 MG/DL (70-104); MAGNESIUM 1.9 MG/DL (1.5-2.4); POTASSIUM 3.4 MMOL/L (3.5-5.1); SODIUM 143 MMOL/L (135-145); THYROID STIMULATING HORMONE 1.93 ulU/ml (0.34-4.50); TOTAL CARBON DIOXIDE 26.2 MMOL/L (24-32); eGFR 62 ML/MIN
== END 2025-03-02 23:59 | disposition home or self-care (01) ==
LOC: LAB 07:14
PROVIDERS: ATTEND Internal Medicine Hematology & Oncology
DX: C50.912 Malignant neoplasm of unspecified site of left female breast (principal); Z17.0 Estrogen receptor positive status [ER+]; E61.1 Iron deficiency; R79.89 Other specified abnormal findings of blood chemistry; Z79.899 Other long term (current) drug therapy
CPT/HCPCS: 36415; 80053; 83735; 84443; 85025

== ENCOUNTER 2025-03-09 14:28 | Outpatient (CLI) | payer BC ==
--- NOTE | 2025-03-09 18:23 | CARDIOLOGY REPORT ---
APPROVED REPORT EXAM: Comprehensive 2D, Doppler, and color-flow Echocardiogram. Patient Location: OUTPATIENT Blood Pressure: 112/57 mmHg Heart Rate: 87 bpm Rhythm: SINUS Indications CHEMO PRE OP Sanitation Technician: Naif Raphael MD Previous echo: [facility] 12-09-24 EF 70-75%, trTR, trMR 2D Dimensions RVDd 3.2 cm IVSd 0.7 (0.7-1.1cm) LVDd 4.4 cm PWd 1.0 (0.7-1.1cm) IVSs 1.2 (0.8-1.2cm) LVDs 3.1 (2.5-4.0cm) PWs 1.2 (0.8-1.2cm) LVOT Diameter 1.81 (1.8-2.4cm) LVEF(%) 58.3 (>50%) IVC 15.38 mm FS (%) 30.6 % SV 52.1 ml M-Mode Dimensions Left Atrium(MM) 2.69 (2.5-4.0cm) Aortic Root 2.36 (2.2-3.7cm) Aortic Valve AoV Peak Sheldon. 132.8 cm/s AoV VTI 18.0 cm AO Peak GR. 7.1 mmHg AO Mean GR. 3 mmHg LVOT VTI 21.82 cm LVOT Peak Sheldon. 114.7 cm/s TK (VMAX) 2.22 cm2 TK (VTI) 3.11 cm2 Mitral Valve MV E Velocity 64.6 cm/s MV DECEL TIME 185 ms MV A Velocity 87.2 cm/s MV PHT 58 ms E/A Ratio 0.7 MVA (PHT) 3.81 cm2 TDI E/Medial E' 12.7 Tricuspid Valve TR P. Velocity 112 cm/s RAP ESTIMATE 10 mmHg TR Peak Gr. 5 mmHg RVSP 15 mmHg LEFT VENTRICLE Normal LV size and wall thickness. Overall systolic function is normal. LVEF is 60-65%. RIGHT VENTRICLE RV is normal size and function. ATRIA The left atrium size is normal. AORTIC VALVE Trileaflet AV appears mildly sclerotic without stenosis. No insufficiency. MITRAL VALVE Mild MV annular calcification without stenosis. No regurgitation. TRICUSPID VALVE TV appears structurally normal with trace regurgitation. PULMONIC VALVE Normal appearing PV without stenosis or insufficiency. GREAT VESSELS The aortic root is normal in size. PERICARDIUM Normal pericardium. No effusion. Other Information Study Quality: Adequate Conclusion Normal LV size and wall thickness. Overall systolic function is normal. LVEF is 60-65%. RV is normal size and function. The left atrium size is normal. Trileaflet AV appears mildly sclerotic without stenosis. No insufficiency. Mild MV annular calcification without stenosis. No regurgitation. TV appears structurally normal with trace regurgitation. Normal pericardium. No effusion.
== END 2025-03-09 23:59 | disposition home or self-care (01) ==
LOC: CARD DIAG 14:28
PROVIDERS: ATTEND Nurse Practitioner Family
DX: I08.0 Rheumatic disorders of both mitral and aortic valves (principal); C50.112 Malignant neoplasm of central portion of left female breast; C50.912 Malignant neoplasm of unspecified site of left female breast; E78.5 Hyperlipidemia, unspecified
CPT/HCPCS: 93306

== ENCOUNTER 2025-04-29 13:30 | Outpatient (CLI) | payer BC ==
[2025-04-29 14:31] LABS: MEAN PLATELET VOLUME 7.4 FL (7.4-10.4); RED CELL DISTRIBUTION WIDTH 14.1 % (11.5-14.5)
[2025-04-29 14:44] LABS: CREATININE 0.90 MG/DL (0.40-0.90); TOTAL CARBON DIOXIDE 27.1 MMOL/L (24-32); eGFR 65 ML/MIN
== END 2025-04-29 23:59 | disposition home or self-care (01) ==
LOC: LAB 13:30
PROVIDERS: ATTEND Internal Medicine Hematology & Oncology
DX: C50.912 Malignant neoplasm of unspecified site of left female breast (principal)
CPT/HCPCS: 36415; 80053; 82670; 85025

== ENCOUNTER 2025-06-15 15:43 | Outpatient (CLI) | payer BC ==
--- NOTE | 2025-06-15 19:13 | CARDIOLOGY REPORT ---
APPROVED REPORT EXAM: Comprehensive 2D, Doppler, and color-flow Echocardiogram. Patient Location: OUT-PATIENT Blood Pressure: 126/77 mmHg Heart Rate: 83 bpm Rhythm: NSR Indications LV monitoring for cardiotoxic chemo treatment Senior Director [employer] is Naif Raphael MD Previous echo 03/09/25 [facility] 60-65% EF ; tr TR 2D Dimensions LA Diam 3.6 cm IVSd 1.1 (0.7-1.1cm) LVDd 4.5 cm PWd 1.1 (0.7-1.1cm) IVSs 1.4 (0.8-1.2cm) LVDs 2.8 (2.5-4.0cm) PWs 1.2 (0.8-1.2cm) LVOT Diameter 2.04 (1.8-2.4cm) LVEF(%) 66.9 (>50%) IVC 17.90 mm FS (%) 36.9 % SV 61.9 ml M-Mode Dimensions MV EPSS 0.5 (<0.5cm) Aortic Valve AoV Peak Sheldon. 169.0 cm/s AoV VTI 30.8 cm AO Peak GR. 11.4 mmHg AO Mean GR. 7 mmHg LVOT VTI 25.36 cm LVOT Peak Sheldon. 138.9 cm/s TK (VMAX) 2.69 cm2 TK (VTI) 2.70 cm2 Mitral Valve MV E Velocity 68.4 cm/s MV DECEL TIME 293 ms MV A Velocity 66.5 cm/s MV PHT 55 ms E/A Ratio 1.0 MVA (PHT) 3.98 cm2 TDI E/Medial E' 6.6 Tricuspid Valve TR P. Velocity 251 cm/s RAP ESTIMATE 10 mmHg TR Peak Gr. 25 mmHg RVSP 35 mmHg Pulmonary Vein S2 Velocity 50.57 cm/s PVa Duration 103 msec LEFT VENTRICLE Normal LV size and wall thickness. Overall systolic function is normal. LVEF is 65%. GLS=-14.6%. RIGHT VENTRICLE RV appears normal in size and contractility. RVSP is estimated at 35 mmHG. ATRIA The left atrium size is normal. AORTIC VALVE Trileaflet AV appears sclerotic without stenosis. No insufficiency. MITRAL VALVE MV is thickened with mild annular calcification and no stenosis. Trace mitral regurgitation. TRICUSPID VALVE The tricuspid valve is normal in structure. Trace tricuspid regurgitation. PULMONIC VALVE The pulmonary valve is normal in structure. Trace pulmonic regurgitation. GREAT VESSELS The aortic root is normal in size. The IVC is normal in size and collapses >50% with inspiration. PERICARDIUM There is no pericardial effusion. Other Information Study Quality: Adequate Conclusion Normal LV size and wall thickness. Overall systolic function is normal. LVEF is 65%. GLS=-14.6%. RV appears normal in size and contractility. RVSP is estimated at 35 mmHG. The left atrium size is normal. Trileaflet AV appears sclerotic without stenosis. No insufficiency. MV is thickened with mild annular calcification and no stenosis. Trace mitral regurgitation. The tricuspid valve is normal in structure. Trace tricuspid regurgitation. The pulmonary valve is normal in structure. Trace pulmonic regurgitation. There is no pericardial effusion.
== END 2025-06-15 23:59 | disposition home or self-care (01) ==
LOC: CARD DIAG 15:43
PROVIDERS: ATTEND Internal Medicine Interventional Cardiology
DX: I08.0 Rheumatic disorders of both mitral and aortic valves (principal); C50.112 Malignant neoplasm of central portion of left female breast; E78.5 Hyperlipidemia, unspecified
CPT/HCPCS: 93306; 93356

== ENCOUNTER 2025-07-02 07:57 | Emergency (ER) | payer BC ==
[~2025-07-02] VITALS: Ht 162.6 cm; Wt 111.8 kg
[2025-07-02 07:59] VITALS: TEMP 97.6
[2025-07-02 08:29] VITALS: BP 130/78; PULSE 81; O2SAT 96
[2025-07-02 08:37] VITALS: RESP 15
--- NOTE | 2025-07-02 09:29 | Physician Documentation ---
History of Present Illness ~ General Chief Complaint: See Chief Complaint Stated Complaint: JAW PAIN Time Seen by MD: 08:24 Source: patient, family Mode of Arrival: Ambulatory History of Present Illness Initial Comments 55-year-old female history of breast cancer on immunologic therapy presenting for right jaw pain. At 1st she noticed a small bump over her right mandible earlier this morning. It was initially mildly tender over the last several hours it has increased in size and is becoming more uncomfortable. She denies history of recent trauma. No dental infections or dental caries. No ear pain. Denies any fevers or chills. No cough chest pain shortness of breath abdominal pain or rash. No history of similar. Denies any headache or neck pain Medication Reconciliation Allergies: Coded Allergies: garlic (Verified Allergy, Severe, 12/09/24) CANT HAVE DUE TO CHEMO grapefruit (Verified Allergy, Severe, 12/09/24) DUE TO CHEMO yobany (Verified Allergy, Severe, FACIAL SWELLING, 07/02/25) shellfish derived (Verified Allergy, Severe, FACIAL SWELLING/ITCHING/ASTHMA, 07/02/25) iodine (Verified Allergy, Unknown, FACIAL SWELLING/ITCHING/ASTHMA, 07/02/25) Scheduled Cefdinir (Cefdinir), 1 CAP PO Q12H D-Methorphan Hb/Prometh HCl (Promethazine-Dm Syrup), 5 ML PO Q6H, (Reported) Dicyclomine HCl (Dicyclomine HCl), 1 TAB PO TID, (Reported) Gabapentin (Gabapentin), 1 CAP PO TID, (Reported) Lidocaine/Prilocaine (Lidocaine-Prilocaine Cream), 1 APPLIC TOP DAILY, (Reported) Scheduled PRN Albuterol Sulfate (Ventolin Hfa), 1 PUFF INH Q4H PRN for SOB or wheezing, (Reported) Ipratropium/Albuterol Sulfate (Duoneb 2.5-0.5 Mg/3 Ml Soln), 1 VIAL NEB Q6H PRN for SOB or wheezing, (Reported) Ondansetron HCl (Ondansetron HCl), 1 TAB PO TID PRN for nausea/vomiting, (Reported) Prochlorperazine Maleate (Prochlorperazine Maleate), 1 TAB PO TID PRN for nausea/vomiting, (Reported) Past Medical History Patient History: FH: bladder cancer FATHER FH: heart disease FATHER FH: leukemia FATHER Smoking Status: Never smoker Review of Systems All Other Systems at this time: Reviewed and Negative Physical Exam Physical Exam Vital Signs: Temperature: 97.6, Source: Temporal, Heart Rate: 81, Respiratory Rate: 15, BP: 130/78, Pulse Oximetry: 96, Weight: 111.820 Oxygen Flow Rate: 0 General Appearance Well-appearing pleasant female no acute distress HEENT: Jaw range of motion intact mild soft tissue swelling over the angle of mandible and anteriorly to parotid gland. No erythema. No trismus. Oropharynx clear no peritonsillar abscess. Gingiva normal. Left submandibular salivary stone. Intact right upper crown. No purulence from Stensen's duct. Tolerating secretions. Ears clear tympanic membranes bilaterally. No mastoid tenderness Neck soft supple intact range of motion no lymphadenopathy Breathing comfortably Awake alert oriented normal speech normal strength Facial and trigeminal nerve intact Progress Results/Orders Results/Orders Vital Signs 07/02/25 07/02/25 07/02/25 07:59 08:29 08:37 Temp 97.6 Pulse 76 81 Resp 16 15 15 B/P (MAP) 145/82 130/78 (95) Pulse Ox 96 96 O2 Flow Rate 0 Medical Decision Making Additional info obtained from: old records (Discharge summary December 2024), family Departure Disposition: 01 HOME / SELF CARE / HOMELESS Impression: Primary Impression: Parotitis Additional Impression Text well appearing patient currently on immunotherapy for breast cancer presenting for several hours of increasing right jaw pain and swelling. She has mild soft tissue swelling on exam no trismus no signs of deep infection. No fevers. Ears are clear and no palpable abscess. Question of early parotitis versus potential dental infection from old crown however regardless I elected to start her on antibiotics given her immune compromise Additional Instructions: Please start taking the antibiotics I prescribed you. More importantly you should apply hot compresses to the affected area at least 4-6 times daily. Continue to practice good dental hygiene with warm saltwater rinses. Return if it grows, you have difficulty swallowing or fever Referrals: ARNULFO GRIGGS STREAM CONTROL OFFICER (PCP) Prescriptions Amox Tr/Potassium Clavulanate (Augmentin 875-125 Tablet) 1 Each Tablet 1 TAB PO Q12H for 7 Days, #14 TAB Prov: MERCY NAJERA MD 07/02/25 Signature Scribe Signature: Tye Attestation: MERCY Azevedo MD Jul 02, 2025 09:29
[2025-07-02] MEDS ORDERED: AMOX-117 PO (09:44)
== END 2025-07-02 09:54 | disposition home or self-care (01) ==
LOC: ER 07:58
DX: K11.20 Sialoadenitis, unspecified (principal); Z91.013 Allergy to seafood; Z91.018 Allergy to other foods; Z88.8 Allergy status to other drugs, medicaments and biological substances
CPT/HCPCS: 99283

== ENCOUNTER → 2025-08-08 | Outpatient (CLI) | payer BC | END | disposition home or self-care (01) | LOC: LAB 16:24 | PROVIDERS: ATTEND Surgery | DX: N61.1 Abscess of the breast and nipple (principal) | CPT/HCPCS: 87070; 87075 ==